=== PATIENT | male | born 1960 | race Caucasian/White ===

== ENCOUNTER → 2018-01-26 | Outpatient (CLI) | payer OTHER, BC ==
--- NOTE | 2018-01-26 16:00 | RADIOLOGY IMAGING REPORT ---
FACILITY: [facility] - [place] PATIENT NAME: Hao Chacon : 1960 MR: [id number] V: [id number] EXAM DATE: ORDERING PHYSICIAN: SELVIN PINEDA TECHNOLOGIST: Location: [facility] Patient: Hao Chacon : 1960 Visit/Account:[id number] Date of Sevice: 01/26/2018 ADDENDUM #1 Addendum: Patient underwent a lateral view which redemonstrates a punctate metallic foreign body. Overlies the anterior and inferior margin of the left orbit and is likely related to the periorbital soft tissues. Patient underwent a shoulder MRI 2007 and there was no issue at that time. Discussed the findings wi th the patient over the telephone at 4:27 PM. Because there were no issues in 2007, he wishes to proc eed. We will put him into the magnet with caution. He was instructed to inform the technologist if th ere are any issues while in the magnet. I also discussed the findings and the plan with the technolog ist at the time of this dictation. Report Dictated By: Khoa Doshi at 01/26/2018 4:15 PM Report E-Signed By: Khoa Doshi at 01/26/2018 4:28 PM ORIGINAL REPORT Single view of the orbits INDICATION: Pre-MRI. Evaluate for radiopaque foreign body. FINDINGS: Single Ann' view was obtained of the skull. There is a punctate metallic density which o verlies the left orbit. This was seen on the previous examination in 2007 and a similar location. Exa ct location is unclear on this single projection image. IMPRESSION: 1. Punctate metallic density overlying the left orbit. Exact location is unclear on this single proje ction. Patient is to undergo a lateral view for further assessment. Report Dictated By: Khoa Doshi at 01/26/2018 3:47 PM Report E-Signed By: Khoa Doshi at 01/26/2018 3:56 PM [id number]
--- NOTE | 2018-01-26 17:38 | RADIOLOGY IMAGING REPORT ---
FACILITY: PATIENT NAME: Hao Chacon : 1960 MR: [id number] V: [id number] EXAM DATE: ORDERING PHYSICIAN: SELVIN PINEDA TECHNOLOGIST: Location: [facility] [place] Patient: Hao Chacon : 1960 Visit/Account:[id number] Date of Sevice: 01/26/2018 EXAMINATION: MRI Lumbar spine without intravenous contrast HISTORY: Low back pain. COMPARISON: None available. TECHNIQUE: Multi-planar, multi-sequence lumbar spine MRI was performed without intravenous contrast administration. FINDINGS: Alignment: Mild convex rightward curvature. Vertebral marrow signal: Discogenic bone marrow edema in the lower thoracic spine and at L5-S1. Other lira negative. Distal thoracic cord: Negative. Conus: negative, terminates at L1 Cauda equina: Negative. Paravertebral soft tissues: Negative. Visualized abdominal and pelvic structures: 2 cm medial right renal cyst. Partially imaged 7 mm left lateral renal cyst. Disc Spaces: Lower thoracic spine: Mild disc bulges at T11-T12 and T12-L1 with no significant stenosis. L1-2: Negative. L2-3: Moderate disc height loss with circumferential disc bulge and facet hypertrophy. Mild spinal ca nal stenosis. Mild bilateral neural foraminal stenosis. L3-4: Mild disc height loss with circumferential disc bulge and facet hypertrophy. No significant spi nal canal stenosis. Mild bilateral neural foraminal stenosis. L4-5: Mild disc height loss with circumferential disc bulge and facet hypertrophy. Mild bilateral lat eral recess stenosis. Moderate bilateral neural foraminal stenosis. L5-S1: Moderate to severe disc height loss with circumferential disc osteophyte complex and facet hyp ertrophy. No significant spinal canal stenosis. Moderate left and moderately severe right neural fora gale stenosis. IMPRESSION: Multilevel degenerative disc disease and facet hypertrophy with mild convex rightward cur vature. Report Dictated By: Jean Allen MD at 01/26/2018 5:30 PM Report E-Signed By: Jean Allen MD at 01/26/2018 5:35 PM [id number]
== END ==
LOC: MRI 06:58
PROVIDERS: ATTEND Chiropractor
DX: M51.17 Intervertebral disc disorders with radiculopathy, lumbosacral region (principal)
CPT/HCPCS: 70030; 72148